=== PATIENT | male | born 1965 | race African-American/Black ===

== ENCOUNTER 2016-11-10 15:56 | Emergency (ER) | payer MEDICAID ==
[2016-11-10 16:31] VITALS: BP 142/82
== END 2016-11-10 17:21 | disposition home or self-care (01) ==
LOC: ER 16:06
DX: G62.9 Polyneuropathy, unspecified (principal); Z76.0 Encounter for issue of repeat prescription; Z88.8 Allergy status to other drugs, medicaments and biological substances

== ENCOUNTER 2017-08-22 22:07 | Observation (INO) | payer MEDICAID ==
[~2017-08-22] VITALS: Ht 182.9 cm; Wt 81.2 kg
[2017-08-22 23:20] LABS: Basophils # (auto) 0 uL; Basophils % (auto) 0.5 % (0.0-2.0); Eosinophils # (auto) 0.1 uL; Eosinophils % (auto) 0.7 % (0.0-7.0); Hematocrit 37.8 % (41.0-53.0); Hemoglobin 12.9 g/dL (13.5-17.5); Lymphocytes # (auto) 0.8 uL; Lymphocytes % (auto) 8.5 % (10.0-50.0); Mean Corpuscular Hemoglobin 33.5 pg (28.0-32.0); Mean Corpuscular Hgb Conc. 34.3 g/dL (32.0-36.0); Mean Corpuscular Volume 97.9 fL (80.0-100.0); Mean Platelet Volume 7.6 fL (6.9-10.8); Monocytes # (auto) 0.7 uL; Monocytes % (auto) 7.2 % (0.0-12.0); Neutrophils # (auto) 7.9 uL; Neutrophils % (auto) 83.1 % (37.0-80.0); Platelet Count (auto) 245 10^3/uL (140-450); Red Cell Distribution Width 13.3 % (11.8-14.3); White Blood Cell 9.5 10^3/uL (4.4-10.8)
[2017-08-23 02:39] LABS: Albumin 3.3 g/dL (3.4-5.0); BUN/Creatinine Ratio 17.7; Calcium 9.9 mg/dL (8.5-10.1); Potassium 3.8 mmol/L (3.5-5.1)
[2017-08-23 02:42] LABS: Bilirubin, Total 0.9 mg/dL (0.2-1.0); Total Protein 7.7 g/dL (6.4-8.2)
[2017-08-23 02:54] LABS: Acetaminophen < 2.0 ug/mL (10-30); Salicylate 4.5 mg/dL (2.8-20.0)
[2017-08-23 04:23] LABS: Urine Bilirubin 1+ (Negative); Urine Blood TRACE /uL (Negative); Urine Color Brown (Yellow); Urine Glucose TRACE mg/dL (Normal); Urine Granular Cast FEW /lpf (0); Urine Hyaline Cast FEW /lpf (0 - 2); Urine Ketone TRACE (Negative); Urine Mucus FEW (None Seen); Urine Nitrite Negative (Negative); Urine RBC 4 /hpf (0 - 3); Urine Sperm PRESENT /hpf (None Seen); Urine pH 5.5 (5.0-8.0)
[2017-08-23] MEDS ORDERED: HALOPERIDOL 5 MG TAB PO SCH (11:00)
[2017-08-23] MEDS: CITALOPRAM HYDROBR 20 MG TAB PO SCH (18:06)
[2017-08-23] MEDS ORDERED: IBUPROFEN 800 MG TAB PO PRN (18:15)
[2017-08-23] MEDS ORDERED: ALBUTEROL SULF 2.5 MG/0.5ML(0.5%) NEB SOLN NEB PRN (18:30)
[2017-08-23] MEDS ORDERED: CELECOXIB 100 MG CAP PO SCH (22:00)
[2017-08-23] MEDS: CEPHALEXIN 250 MG CAP PO SCH (22:50)
[2017-08-23] MEDS: GABAPENTIN 300 MG CAP PO SCH (22:50)
[2017-08-23] MEDS: LORazepam 0.5 MG TAB PO SCH (22:50)
[2017-08-24] MEDS: CEPHALEXIN 250 MG CAP PO SCH ×4 (07:07→22:25)
[2017-08-24] MEDS: LORazepam 0.5 MG TAB PO SCH ×2 (11:41→22:25)
[2017-08-24] MEDS: CITALOPRAM HYDROBR 20 MG TAB PO SCH (11:41)
[2017-08-24] MEDS: GABAPENTIN 300 MG CAP PO SCH ×2 (11:41→22:25)
[2017-08-24 19:30] VITALS: BP 132/92
[2017-08-25] MEDS: CEPHALEXIN 250 MG CAP PO SCH ×3 (08:49→18:44)
[2017-08-25] MEDS: GABAPENTIN 300 MG CAP PO SCH (10:14)
[2017-08-25] MEDS: LORazepam 0.5 MG TAB PO SCH (10:14)
[2017-08-25] MEDS: CITALOPRAM HYDROBR 20 MG TAB PO SCH (10:14)
[2017-08-25] MEDS ORDERED: LORazepam 0.5 MG TAB ONE (23:58)
[2017-08-26] MEDS ORDERED: CEPHALEXIN 250 MG CAP PO ONE ×2 (00:14→00:22)
[2017-08-26] MEDS ORDERED: GABAPENTIN 300 MG CAP ONE (00:15)
[2017-08-26] MEDS: CEPHALEXIN 250 MG CAP PO SCH ×5 (09:00→22:19)
[2017-08-26] MEDS: GABAPENTIN 300 MG CAP PO SCH ×3 (12:30→22:19)
[2017-08-26] MEDS: LORazepam 0.5 MG TAB PO SCH ×3 (12:30→22:19)
[2017-08-26] MEDS: CITALOPRAM HYDROBR 20 MG TAB PO SCH (12:30)
[2017-08-27] MEDS: CEPHALEXIN 250 MG CAP PO SCH ×4 (06:00→22:28)
[2017-08-27] MEDS: LORazepam 0.5 MG TAB PO SCH ×2 (10:59→22:28)
[2017-08-27] MEDS: GABAPENTIN 300 MG CAP PO SCH ×3 (10:59→22:28)
[2017-08-27] MEDS: CITALOPRAM HYDROBR 20 MG TAB PO SCH (10:59)
[2017-08-28] MEDS: CEPHALEXIN 250 MG CAP PO SCH ×5 (08:12→22:20)
[2017-08-28] MEDS: CITALOPRAM HYDROBR 20 MG TAB PO SCH (11:34)
[2017-08-28] MEDS: GABAPENTIN 300 MG CAP PO SCH ×2 (11:34→22:18)
[2017-08-28] MEDS: LORazepam 0.5 MG TAB PO SCH ×2 (11:34→22:18)
[2017-08-28 14:10] VITALS: BP 133/81
[2017-08-29] MEDS ORDERED: OLANZapine 5 MG TAB PO PRN (02:45)
[2017-08-29] MEDS ORDERED: CEPHALEXIN 250 MG CAP PO ONE ×2 (06:21→11:30)
[2017-08-29] MEDS: CEPHALEXIN 250 MG CAP PO SCH ×2 (06:29→11:35)
[2017-08-29 07:12] VITALS: BP 128/64
[2017-08-29] MEDS: LORazepam 0.5 MG TAB PO SCH (10:00)
[2017-08-29] MEDS: CITALOPRAM HYDROBR 20 MG TAB PO SCH (10:00)
[2017-08-29] MEDS: GABAPENTIN 300 MG CAP PO SCH (10:00)
[2017-08-29] MEDS ORDERED: LORazepam 0.5 MG TAB ONE (11:25)
[2017-08-29] MEDS ORDERED: CITALOPRAM HYDROBR 20 MG TAB ONE (11:25)
[2017-08-29] MEDS ORDERED: GABAPENTIN 300 MG CAP ONE (11:25)
== END 2017-08-29 14:38 | disposition home or self-care (01) | DRG 862 ==
LOC: EDBD 22:07 → ER 22:07 → OVERFLOW 22:08 → ER 08-29 14:38
PROVIDERS: ADMIT Emergency Medicine; ATTEND Emergency Medicine
DX: S62.102G Fracture of unspecified carpal bone, left wrist, subsequent encounter for fracture with delayed healing (principal); F20.9 Schizophrenia, unspecified; I10 Essential (primary) hypertension; S52.509A Unspecified fracture of the lower end of unspecified radius, initial encounter for closed fracture; S61.512A Laceration without foreign body of left wrist, initial encounter; Z59.0 Homelessness; J45.909 Unspecified asthma, uncomplicated; F31.9 Bipolar disorder, unspecified; F41.9 Anxiety disorder, unspecified; Z79.899 Other long term (current) drug therapy; W17.89XD Other fall from one level to another, subsequent encounter; Y93.89 Activity, other specified; Y92.89 Other specified places as the place of occurrence of the external cause; Y99.8 Other external cause status
CPT/HCPCS: 36415; 73090; 73110; 80053; 80307; 80320; 80329; 81001; 85025; 94640; G0378

== ENCOUNTER 2018-03-06 11:57 | Emergency (ER) | payer MEDICAID ==
[~2018-03-06] VITALS: Ht 182.9 cm; Wt 80.7 kg
[2018-03-06] MEDS ORDERED: TETANUS-DIPTH-ACEL PERTUSSIS 0.5ML SYRG IM ONE (13:15)
[2018-03-06] MEDS ORDERED: cefTRIAXone SOD 1,000 MG VL IM ONE (13:15)
[2018-03-06 13:45] VITALS: BP 131/84
[2018-03-06] MEDS ORDERED: LIDOCAINE 2% (LOCAL ANESTH.) PF 5ml SDV ONE (14:04)
[2018-03-06] MEDS ORDERED: KETOROLAC TROMETH 60MG/2ML VIAL IM ONE (14:15)
== END 2018-03-06 14:39 | disposition home or self-care (01) ==
LOC: ER 11:57
DX: S91.011D Laceration without foreign body, right ankle, subsequent encounter (principal); F17.290 Nicotine dependence, other tobacco product, uncomplicated; W23.0XXD Caught, crushed, jammed, or pinched between moving objects, subsequent encounter
CPT/HCPCS: 73610; 90471; 90715; 96372; 99284; J0696; J1885

== ENCOUNTER 2018-03-10 10:49 | Emergency (ER) | payer MEDICAID ==
[~2018-03-10] VITALS: Ht 182.9 cm; Wt 81.2 kg
[2018-03-10 10:51] VITALS: BP 141/71
== END 2018-03-10 12:08 | disposition home or self-care (01) ==
LOC: ER 10:49
DX: M79.604 Pain in right leg (principal); F17.210 Nicotine dependence, cigarettes, uncomplicated; Z88.8 Allergy status to other drugs, medicaments and biological substances; Z76.0 Encounter for issue of repeat prescription